=== PATIENT | female | born 1965 | race Caucasian/White ===

== ENCOUNTER → 2016-09-01 | Outpatient (CLI) | payer OTHER ==
[~2016-09-01] MED LIST: COMPAZINE10 MG PO; MOTRIN IB200 MG PO; MULTIPLE VITAM1 EACH PO; MULTIVITAMINS1 EAC1 PO; PRINIVIL2.5 MG PO; TOPROL XL25 MG PO; TYLENOL PM EX-1 EACH PO; VICODIN 5-3001 EACH PO; XELODA500 MG PO; ZOFRAN ODT8 MG PO
== END | disposition short-term general hospital (02) ==
LOC: CLCARD 08-25 11:10
DX: I42.9 Cardiomyopathy, unspecified (principal); R60.0 Localized edema; R19.00 Intra-abdominal and pelvic swelling, mass and lump, unspecified site; I27.2 Other secondary pulmonary hypertension; I36.1 Nonrheumatic tricuspid (valve) insufficiency; R00.1 Bradycardia, unspecified; R94.31 Abnormal electrocardiogram [ECG] [EKG]